=== PATIENT | male | born 1990 | race Caucasian/White ===

== ENCOUNTER 2025-02-11 17:07 | Outpatient (CLI) | payer OTHER, SELFPAY ==
--- NOTE | ~2025-02-11 | US_ITS ---
US thyroid INDICATION: Multinodular goiter TECHNIQUE: Real-time sonographic images of the thyroid gland were obtained. COMPARISON: No prior studies for comparison. FINDINGS: The right thyroid lobe measures 4.8 x 0.6 x 1.1 cm. The left thyroid lobe measures 5.7 x 1 x 1.4 cm. There is normal echotexture and echogenicity throughout the right thyroid gland. No discre te nodules identified. In the left lobe there is a heterogeneous hypoechoic vascular mass measuring 1 .4 x 1 x 1.2 cm which is solid, wider than tall, irregular margins and punctate echogenic foci, TR 5. Normal vascular flow is present. IMPRESSION: 1. Complex suspicious left thyroid mass measuring 1.4 cm, TR 5. Ultrasound-guided fine-needle aspira tion biopsy recommended. Reviewed, dictated and finalized at location A. IMPRESSION: 1. Complex suspicious left thyroid mass measuring 1.4 cm, TR 5. Ultrasound-ted ded fine-needle aspiration biopsy recommended.
--- OUTSIDE RECORDS SUMMARY | 2025-02-11 17:11 | XMS_ITS | Encounter Summary ---
Author Organization [facility] Address [address] [place] [address] Care Team Providers Care Retirement Plan Counselor Name Role Phone Eve Gleason CONCRETE BUCKET HOOKER-C Primary Care Provider [phone] Kya Ayon CONCRETE BUCKET HOOKER Primary Care Provider [phone] Nidhi Terrell HVAC INSTALLATION TECHNICIAN-BC Primary Care Provid er Merlin Rajan DO Primary Care Provider Nidhi Terrell HVAC INSTALLATION TECHNICIAN-BC Primary Care Provid er Reason for Referral * Surgical (Routine) - Closed Specialty Diagnoses / Procedures Referred By Beth swanson Referred To Contact Procedures Case request operating room: INJECTION TRIGGER POINT Cervical paraspinous, trapezius, deltoid Laura Bennett APNP Phone: tel: fax: Referral ID Status Reason Start Date Expiration Date Visits Re quested Visits Authorized [id number] Closed 01/29/2021 02/28/2022 1 1 Encounter Details Date Type Department Care Team (Late st Contact Info) Description 01/29/2021 Prep for Procedure [facility] [place], [place] [phone] Laura Bennett APNP [address] [place] [phone] Social History Tobacco Use Types Packs/Day Years Used Date Smoking Tobacco: Former Cigarettes Q uit: 2019 Smokeless Tobacco: Never Alcohol Use Standard Drinks/Week Comments No 0 (1 standard drink = 0.6 oz pur e alcohol) AUDIT-C Answer Date Recorded Frequency of Alcohol Consumption Never 03/18/2019 Average Number of Drinks Not on file 019 Frequency of Binge Drinking Not on file 03/02 PHQ-2 Answer Date Recorded PHQ-2 Score - If the patient scores above 3, please move on to questions 3-9 0 11/30/2020 Education Answer Date Recorded What is the highest level of school you have completed or the highest degree you have received? High school graduate 01/29/2021 Sex and Gender Information Value Date Recorded Sex Assigned at Male 11/12/2024 12:50 PM GLASS FURNACE OPERATOR Legal Sex Male 7:14 PM CDT Gender Identity Not on file Sexual Orientation Not on file Occupation Industry Job Start Date Job End Date Not on file Not on file Not on file Not on file COVID-19 Exposure Response Date Recorded In the last month, have you been in contact with someone who was confirmed or suspected to have Coronavirus / COVID-19? No / Unsure 01/29/2021 1:22 PM CDT documented as of this encounter Plan of Treatment Upcoming Encounters Date Type Department Care Team (Late st Contact Info) Description 02/12/2025 1:20 PM CDT Office Visit [facility] [address] [place] [phone] Nidhi Terrell, [facility] [address] [place] [address] Scheduled Orders Name Type Priority Associated Diagnoses Orde r Schedule Case request operating room: INJECTION TRIGGER POINT Cervical paraspinous, trapezius, deltoid Case Request Routine Once for 1 Oc currences starting 01/29/2021 until 01/29/2021 documented as of this encounter Visit Diagnoses Not on filedocumented in this encounter Care Teams Retirement Plan Counselor Relationship Specialty Start Date End Date Eve Gleason, CONCRETE BUCKET HOOKER-C PCP - General Nurse Practitioner Family 04/20/2012/05 Kya Ayon NP [address] [place] [address] PCP - General NURSE PRACTITIONER 12/06/21 11/29/22 Nidhi Terrell [facility] [address] [place] [address] PCP - General Nurse Practitioner Family 11/30/2212/04 Merlin Rajan DO [address] [place] [address] PCP - General FAMILY PRACTICE 12/05/22 01/07/24 Nidhi Terrell [facility] [address] [place] [address] PCP - General Nurse Practitioner Family 01/08/24 documented as of this encounter
--- OUTSIDE RECORDS SUMMARY | 2025-02-11 17:11 | XMS_ITS | Clinical Summary ---
Author Organization [facility] Address [address], [facility] [address] [place] [address] Phone Care Team Providers Care Financial Recording Clerk Name Role Phone Elmer Wetzel MD Primary Care Provider [phone] Sonya Bowman MD Unavailable [phone] Allergies Active Allergy Reactions Criticality Noted Date Comments Erythromycin Base Nausea 10/07/2015 Indomethacin Er Hives,Rash Low 11/20/2015 Medications MEDICAL CANNABIS take 2-25 mg by inhalation. Active DULoxetine (CYMBALTA) [address] Particles Take 30 mg by mouth. 12/27/2022 Active levothyroxine (SYNTHROID) 75 MCG Tablet Take 75 mcg by mouth. 12/27/2022 Active HYDROcodone-acet aminophen (NORCO) 5-325 MG Tablet Take 1 Tablet by mouth. 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 Non-Hodgkin's lymphoma 10/07/2015 Family History Medical History Relation Name Comments Diabetes Maternal Grandfather Hypertension Maternal Grandfather Other-comment Maternal Grandfather Christie son Hypertension Mother Relation Name Status Comments Father Maternal Grandfather Mother Alive Sister Alive Social History Tobacco Use Types Packs/Day Years Used Date Smoking Tobacco: Every Day Cigarettes Smokeless Tobacco: Former Tobacco Cessation:Ready to Q uit: Not Asked; Counseling Given: Not Answered Alcohol Use Standard Drinks/Week Comments No 0 (1 standard drink = 0.6 oz pur e alcohol) PHQ-2 Answer Date Recorded Total Score - Questions 1-9 0 03/02 Sex and Gender Information Value Date Recorded Sex Assigned at Not on file Legal 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 Gender Identity Not on file Sexual Orientation Not on file Last Filed Vital Signs Vital Sign Reading Time Taken Comments Blood Pressure 128/82 03/15/2024 9:21 AM CDT Pulse 64 03/15/2024 9:21 AM CDT Temperature 36.8 C (98.2 F) 03/15/2024 9:21 AM CDT Respiratory Rate 18 03/15/2024 9:21 AM CDT Oxygen Saturation 99% 03/15/2024 9:21 AM CDT Inhaled Oxygen Concentration - - Weight 82.6 kg (182 lb) 03/15/2024 9:21 AM CDT Height 177.8 cm (5' 10 ) 03/15/2024 9:21 AM CDT Body Mass Index 26.11 03/15/2024 9:21 AM CDT Plan of Treatment Upcoming Encounters Date Type Department Care Team (Late st Contact Info) Description 03/14/2025 9:00 AM CDT [facility] [address] [place] [address] Trell Raza D, DO [address] [place] [address] Gianna Maguire, CRITICAL POWER TECHNICIAN, WARP KNIT OPERATOR [address] [place] [address] Health Maintenance Due Date Last Done Comments TdaP Immunization 1989 SARS-COV-2 Immunization (#1) 1994 Hepatitis B Immunization (1 of 3 - 19+ 3-dose series) 01/24/2008 Pneumococcal Immunization Co mbined (1 of 2 - PCV) 01/24/2008 Influenza Immunization (#1) 2024 Respiratory Syncytial Virus (RSV) Immunization (Adult) (1 - 1-dose 75+ series) 01/24/2064 Hepatitis C Virus (HCV) Screening Completed 022 Meningococcal Immunization (ACWY) Aged Out No longer eligible based on patient's age to complete this topic Rotavirus Immunization Aged Out No lo nger eligible based on patient's age to complete this topic Insurance [place]ICAID [place] Care Teams Financial Recording Clerk Relationship Specialty Start Date End Date Elmer Wetzel MD [address] [facility] [address] [place] [address] PCP - General Family Medicine 09/15/15 Sonya Bowman MD [address] [facility] [address] [place] [address] Consulting Physician 10/12/15
--- OUTSIDE RECORDS SUMMARY | 2025-02-11 17:11 | XMS_ITS | Clinical Summary ---
Author Organization [facility] Address [address] [place] [address] Care Team Providers Care Executive Recruiter Name Role Phone Kya Ayon APRN-STRATEGIC COMMUNICATIONS MANAGER Primary Care Provide r Source Comments [facility],non-owned Affiliates and Associated Physician Practices is amultiple site organization consisting of ambulatory clinics and hospital sitesin [place], [place], [place] and [place]. This disclosure is being madepursuant to the Care Everywhere program and may not contain all information available regarding this patient. Last updated 18.[facility] Social History Tobacco Use Types Packs/Day Years Used Date Smoking Tobacco: Former Cigarettes Smokeless Tobacco: Never Tobacco Cessation:Counseling Given: Not Answered PHQ-2 Answer Date Recorded PHQ2 TOTAL SCORE 0 09/28/2022 Sex and Gender Information Value Date Recorded Sex Assigned at Not on file Legal Sex Male 3:24 PM CDT Gender Identity Not on file Sexual Orientation Not on file Plan of Treatment Health Maintenance Due Date Last Done Comments HIV SCREENING 01/24/2004 HEPATITIS C SCREENING 01/19/2007 DTAP/TDAP/TD VACCINES (1 - Tdap) 01/24/2008 HEPATITIS B VACCINE (1 of 3 - 19+ 3-dose series) 01/24/2008 COVID-19 VACCINE ( - 2023-2 5 season) 2024 DEPRESSION SCREENING 10/02/2024 09/06/2022 INFLUENZA VACCINE (Season Ended) 2025 ZOSTER VACCINE (1 of 2) 2039 HIB VACCINE Aged Out No longer eligi ble based on patient's age to complete this topic HPV VACCINE Aged Out No longer eligi ble based on patient's age to complete this topic MENINGOCOCCAL (Group B) VACC INE SHARED DECISION-MAKING Aged Out No longer eligibl e based on patient's age to complete this topic MENINGOCOCCAL GROUPS A/C/Y/W VACCINE Aged Out No longer eligible b ased on patient's age to complete this topic PNEUMOCOCCAL VACCINE Aged Out No long er eligible based on patient's age to complete this topic Insurance Care Teams Executive Recruiter Relationship Specialty Start Date End Date Kya Ayon APRN-STRATEGIC COMMUNICATIONS MANAGER [address] [place] [address] PCP - General 05/16/22
--- OUTSIDE RECORDS SUMMARY | 2025-02-11 17:11 | XMS_ITS | Encounter Summary ---
Author Organization [facility] Address [address] [place] [address] Care Team Providers Care Payroll Machine Operator Name Role Phone Eve Gleason POWER BARKER-C Primary Care Provider Kya Ayon POWER BARKER Primary Care Provider [phone] Nidhi Terrell DICTAPHONE TYPIST-BC Primary Care Provid er Merlin Rajan DO Primary Care Provider Nidhi Terrell DICTAPHONE TYPIST-BC Primary Care Provid er Encounter Details Date Type Department Care Team (Late st Contact Info) Description 06/17/2021 Prep for Procedure [facility] [place] [address] [phone] Laura Bennett APNP [address] [place] [address] Social History Tobacco Use Types Packs/Day Years Used Date Smoking Tobacco: Former Cigarettes Q uit: 2020 Smokeless Tobacco: Never Alcohol Use Standard Drinks/Week [...] Sex Assigned at Male 11/12/2024 12:50 PM SANITARY ENGINEERING TEACHER Legal Sex Male 7:14 PM CDT Gender Identity Not on file Sexual Orientation Not on file Occupation Industry Job Start Date Job End Date Not on file Not on file Not on file Not on file documented as of this encounter Plan of Treatment Upcoming Encounters Date Type Department Care Team (Late st Contact Info) Description 02/12/2025 1:20 PM CDT Office Visit [facility] [address] [place] [phone] Nidhi Terrell FNP-BC [address] [place] [address] documented as of this encounter Visit Diagnoses Not on filedocumented in this encounter Care Teams Payroll Machine Operator Relationship Specialty Start Date End Date Eve Gleason POWER BARKER-C PCP - General Nurse Practitioner Family 04/20/2012/05 Kya Ayon NP [address] [place] [address] PCP - General NURSE PRACTITIONER 12/06/21 11/29/22 Nidhi Terrell FNP-BC [address] [place] [phone] PCP - General Nurse Practitioner Family 11/30/2212/04 Merlin Rajan DO [address] [place] [address] PCP - General FAMILY PRACTICE 12/05/22 01/07/24 Nidhi Terrell, DICTAPHONE TYPIST-BC [address] [place] [address] PCP - General Nurse Practitioner Family 01/08/24 documented as of this encounter
--- OUTSIDE RECORDS SUMMARY | 2025-02-11 17:11 | XMS_ITS | Encounter Summary ---
Author Organization [facility] Address [address] [place] [address] Phone Care Team Providers Care Coding Technician Name Role Phone Elmer Wetzel MD Primary Care Provider [phone] Sonya Bowman MD Unavailable [phone] Encounter Details Date Type Department Care Team (Late Contact Info) Description 02/09/2022 Telephone [facility] [address] [facility] [address] [place] [address] Trell Raza, DO [address] [place] [address] Social History Tobacco Use Types Packs/Day Years Used Date Smoking Tobacco: Every Day Cigarettes Smokeless Tobacco: Former Alcohol Use Standard Drinks/Week Comments No 0 (1 standard drink = 0.6 oz pur e alcohol) PHQ-2 Answer Date Recorded Total Score - Questions 1-9 0 03/02 Sex and Gender Information Value Date Recorded Sex Assigned at Not on file Legal 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 New appt is on 03/16 documented in this encounter Plan of Treatment Upcoming Encounters Date Type Department Care Team (Late Contact Info) Description 03/14/2025 9:00 AM CDT Office Visit [facility] [address] [place] [address] Trell Raza, DO [address] [place] [address] Gianna Maguire, SAP BW ARCHITECT, PULL THROUGH HOOKER [address] [place] [address] documented as of this encounter Visit Diagnoses Not on filedocumented in this encounter Additional Health Concerns Assessment Noted Time PHQ-9 Depression Total Score: 0 12/10/19 21 10:11 AM WINDOWS VMWARE ENGINEER documented as of this encounter Care Teams Coding Technician Relationship Specialty Start Date End Date Elmer Wetzel MD [address] [facility] [address] [place] [address] PCP - General Family Medicine 09/15/15 Sonya Bowman MD [address] [facility] [address] [place] [address] Consulting Physician 10/12/15 documented as of this encounter
--- OUTSIDE RECORDS SUMMARY | 2025-02-11 17:11 | XMS_ITS | Clinical Summary ---
Author Organization [facility] Address [address] [place] [address] Care Team Providers Care Records Management Director Name Role Phone Dedematt [facility] Primary Care Provid er Allergies Active Allergy Reactions Criticality Noted Date Comments Erythromycin Diarrhea,Nausea and Vomiting 03/28 Erythromycin Base Nausea Only 10/07/2015 Indomethacin Er Hives,Rash Low 11/20/2015 Medications marijuana inhalation Inhale 2-25 mg into the lungs. 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 180 capsule 1 5 Active levothyroxine (SYNTHROID) 75 MCG tabletIndication s:Hypothyroidism , unspecified type Take 1 tablet (75 mcg total) by mouth every morning. 90 tablet 1 5 Active HYDROcodone-acet aminophen (NORCO) 5-325 MG tabletIndication s:Chronic Pain Take 1 tablet by mouth every 8 (eight) hours as needed for Pain. Indications: Chronic Pain 90 tablet 5 Active HYDROcodone-acet aminophen (NORCO) 5-325 MG tabletIndication s:Chronic Pain Take 1 tablet by mouth every 8 (eight) hours as needed for Pain. 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) 10/19/2016 10/04/2021 Non-Hodgkin's lymphoma ([facility]) 10/07/2015 10/04/2021 Overview (11/30/2020): Followed by oncology. Encounters Date Type Department Care Team Description 02/05/[address] [address] [place], Nidhi E, [facility] [place]-BC Refill Request 01/02/[address] [address] [place], Nidhi E, [employer] [place]-BC Refill Request 12/02/[address] [address] [place], Nidhi E, [employer] [place]-BC Medication Request 11/26/2024 [employer] Message [facility] [place] [address] [phone] [facility] Referral from Last 3 Months Immunizations Immunization Administration Dates Next Due Fluzone Adult - >Age 3 (Pref illed Syringe) 08/15/2024(Deferred: Patient Refused) Family History Medical History Relation Comments No Known Problems Father Parkinson's Disease Maternal Grandmother No Known Problems Mother familial polyposis in multiple family members. O ther Relation Status Comments Father Maternal Grandmother Alive Mother Alive Other Social History Tobacco Use Types Packs/Day Years Used Date Smoking Tobacco: Former Cigarettes 2 020 - 1997 Passive Smoke Exposure: Past Smokeless Tobacco: Never Tobacco Cessation:Counseling Given: Yes Alcohol Use Standard Drinks/Week Comments No 0 (1 standard drink = 0.6 oz pur e alcohol) AUDIT-C Answer Date Recorded Frequency of Alcohol Consumption Never 03/18/2019 Average Number of Drinks Not on file 019 Frequency of Binge Drinking Not on file 03/02 PHQ-2 Answer Date Recorded Patient Health Questionnaire-2 Score 0 11/12/2024 Education Answer Date Recorded What is the highest level of school you have completed or the highest degree you have received? High school graduate 01/29/2021 Sex and Gender Information Value Date Recorded Sex Assigned at Male 11/12/2024 12:50 PM METHODS SPECIALIST ENGINEER Legal Sex Male 7:14 PM CDT Gender Identity Not on file Sexual Orientation Not on file Occupation Industry Job Start Date Job End Date Not on file Not on file Not on file Not on file Last Filed Vital Signs Vital Sign Reading Time Taken Comments Blood Pressure 135/89 11/12/2024 2:00 PM METHODS SPECIALIST ENGINEER Pulse 73 11/12/2024 1:05 PM METHODS SPECIALIST ENGINEER Temperature 36.5 C (97.7 F) 11/12/2024 1:05 PM METHODS SPECIALIST ENGINEER Respiratory Rate 18 11/12/2024 1:05 PM METHODS SPECIALIST ENGINEER Oxygen Saturation 97% 11/12/2024 1:05 PM METHODS SPECIALIST ENGINEER Inhaled Oxygen Concentration - - Weight 91.4 kg (201 lb 6.4 oz) 11/12/2024 1:05 P M METHODS SPECIALIST ENGINEER Height 180.3 cm (5' 11 ) 11/12/2024 1:05 PM METHODS SPECIALIST ENGINEER Body Mass Index 28.09 11/12/2024 1:05 PM METHODS SPECIALIST ENGINEER Plan of Treatment Upcoming Encounters Date Type Department Care Team (Late st Contact Info) Description 02/12/2025 1:20 PM CDT Office Visit [facility] [address] [place] [phone] Nidhi Terrell, [facility] [address] [place] [address] Health Maintenance Due Date Last Done Comments DTaP, Tdap and Td Vaccines ( 1 - Tdap) 01/24/2008 Hepatitis B Vaccines (1 of 3 - 19+ 3-dose series) 01/24/2008 Annual Physical 12/06/2023 12/05/2022 COVID-19 Vaccine (1 - 2023-2 5 season) 2024 Hepatitis C Completed 01/13/2022 PHQ-2 (Physician [place]) Completed 11/12/2024 HPV Vaccines Aged Out No longer eligi ble based on patient's age to complete this topic Meningococcal B Vaccine Aged Out No l onger eligible based on patient's age to complete this topic Meningococcal Vaccine Aged Out No caro ralph eligible based on patient's age to complete this topic Pneumococcal Vaccine: Pediat rics (0 to 5 Years) and At-Risk Patients (6 to 49 Years) Aged Out No longer eligi ble based on patient's age to complete this topic RSV Immunizations Under 20 Months Aged Out No longer eligible based on patient's age to complete this topic Procedures Procedure Name Priority Date/Time Associated Diagnosis Comments HEPATITIS C ANTIBODY Routine 01/13/2022 4:18 PM CDT Encounter for hepatitis C screening test for low risk patient from Last 3 Months or Most Recently Relevant to Health Maintenance Results * HEPATITIS C ANTIBODY (01/13/2022 4:18 PM CDT) HEPATITIS C AB NON-REACTI VE NON-REACTI VE 01/14/2022 4:17 PM CDT [facility] 01/13/2022 4:18 PM CDT Kya Ayon NP LABORATORY Final Resul t [facility] [address] [place] [address], from Last 3 Months or Most Recently Relevant to Health Maintenance Insurance [employer] Advance Directives Documents on File Type Date Recorded Patient Labor Relations Supervisor Expl anation Legal Documents 07/15/2022 1:45 PM [employer] Care Teams Records Management Director Relationship Specialty Start Date End Date Nidhi Terrell FNP-URIEL [address] [place] [address] PCP - General Nurse Practitioner Family 01/08/24
--- OUTSIDE RECORDS SUMMARY | 2025-02-11 17:11 | XMS_ITS | Encounter Summary ---
Author Organization [facility] Address [facility] [place] [address] Care Team Providers Care Project Economist Name Role Phone Elmer Wetzel MD Primary Care Provider + Eve Gleason BEATER BOSS-C Primary Care Provider Kya Ayon BEATER BOSS Primary Care Provider [phone] Nidhi Terrell-URIEL Primary Care Provid er Merlin Rajan DO Primary Care Provider Nidhi Terrell-URIEL Primary Care Provid er Encounter Details Date Type Department Care Team (Late st Contact Info) Description 12/02/2014 Abstract [facility] [address] [place] [address] , Generic ConversionMD Social History Tobacco Use Types Packs/Day Years Used Date Smoking Tobacco: Never Assessed Sex and Gender Information Value Date Recorded Sex Assigned at Male 11/12/2024 12:50 PM DIAGRAMMER AND SEAMER Legal Sex Male 7:14 PM CDT Gender Identity Not on file Sexual Orientation Not on file documented as of this encounter Plan of Treatment Upcoming Encounters Date Type Department Care Team (Late st Contact Info) Description 02/12/2025 1:20 PM CDT Office Visit [facility] [address] [place] [phone] Nidhi Terrell DRUM DRIER-BC [address] [place] [address] documented as of this encounter Visit Diagnoses Not on filedocumented in this encounter Care Teams Project Economist Relationship Specialty Start Date End Date Elmer Wetzel MD [address] [facility] [address] [place] [phone] PCP - General FAMILY PRACTICE 09/18/18 04/19/20 Eve Gleason, BEATER BOSS-C [address] [place] [address] [address] PCP - General Nurse Practitioner Family 04/20/2012/05 Kya Ayon NP [address] [place], [place] [id number] PCP - General NURSE PRACTITIONER 12/06/21 11/29/22 Nidhi Terrell DRUM DRIER- [address] [place] [address] PCP - General Nurse Practitioner Family 11/30/2212/04 Merlin Rajan DO [address] [place] [address] PCP - General FAMILY PRACTICE 12/05/22 01/07/24 Nidhi Terrell DRUM DRIER- [address] [place] [address] PCP - General Nurse Practitioner Family 01/08/24 documented as of this encounter
--- OUTSIDE RECORDS SUMMARY | 2025-02-11 17:11 | XMS_ITS | Encounter Summary ---
Author Organization [facility] Address [facility] [place] [address] Care Team Providers Care Live In Housekeeper Nanny Name Role Phone Elmer Wetzel MD Primary Care Provider + Eve Gleason TAIL SAWYER-C Primary Care Provider Kya Ayon TAIL SAWYER Primary Care Provider +1- [phone] Nidhi TerrellP-URIEL Primary Care Provid er Merlin Rajan DO Primary Care Provider Nidhi Terrell-URIEL Primary Care Provid er Encounter Details Date Type Department Care Team (Late st Contact Info) Description 08/05/2017 Abstract [place] [address] , Generic Conversion, Social History Tobacco Use Types Packs/Day Years Used Date Smoking Tobacco: Never Assessed Sex and Gender Information Value Date Recorded Sex Assigned at Male 11/12/2024 12:50 PM ADVERTISING AGENCY MANAGER Legal Sex Male 7:14 PM CDT Gender Identity Not on file Sexual Orientation Not on file documented as of this encounter Plan of Treatment Upcoming Encounters Date Type Department Care Team (Late st Contact Info) Description 02/12/2025 1:20 PM CDT Office Visit [address] [phone] Nidhi Terrell PAINTER SIGN MAINTENANCE-BC [address] [place] [address] documented as of this encounter Visit Diagnoses Not on filedocumented in this encounter Care Teams Live In Housekeeper Nanny Relationship Specialty Start Date End Date Elmer Wetzel MD [address] [facility] [address] [place] [address] PCP - General FAMILY PRACTICE 09/18/18 04/19/20 Eve Gleason, TAIL SAWYER-C 9401 [facility] [address] PCP - General Nurse Practitioner Family 04/20/2012/05 Kya Ayon NP 9401 [place] [address] PCP - General NURSE PRACTITIONER 12/06/21 11/29/22 [facility] 9401 [place] [address] PCP - General Nurse Practitioner Family 11/30/2212/04 Merlin Rajan DO 9401 [place] [address] PCP - General FAMILY PRACTICE 12/05/22 01/07/24 Nidhi Terrell [facility] [address] [place] [address], [place] [address] PCP - General Nurse Practitioner Family 01/08/24 documented as of this encounter
--- OUTSIDE RECORDS SUMMARY | 2025-02-11 17:11 | XMS_ITS | Encounter Summary ---
Author Organization [facility] Address [facility] [place] [address] Care Team Providers Care Asphalt Coater Name Role Phone Elmer Wetzel MD Primary Care Provider + Eve Gleason MACHINE SILK SCREEN PRINTER-C Primary Care Provider Kya Ayon MACHINE SILK SCREEN PRINTER Primary Care Provider +1- [phone] Nidhi Terrell-URIEL Primary Care Provid er Merlin Rajan DO Primary Care Provider Nidhi Terrell-URIEL Primary Care Provid er Encounter Details Date Type Department Care Team (Late st Contact Info) Description 03/09/2019 Abstract [facility] CONVERSION [address] [place], [place] [id number] , Generic ConversionMD Social History Tobacco Use Types Packs/Day Years Used Date Smoking Tobacco: Never Assessed Sex and Gender Information Value Date Recorded Sex Assigned at Male 11/12/2024 12:50 PM STORAGE BATTERY CHARGER Legal Sex Male 7:14 PM CDT Gender Identity Not on file Sexual Orientation Not on file documented as of this encounter Plan of Treatment Upcoming Encounters Date Type Department Care Team (Late st Contact Info) Description 02/12/2025 1:20 PM CDT Office Visit [address] [address] Nidhi Terrell BRASS CUTTER-BC [address] [place] [address] documented as of this encounter Visit Diagnoses Not on filedocumented in this encounter Care Teams Asphalt Coater Relationship Specialty Start Date End Date Elmer Wetzel MD [address] [facility] [address] [place] [phone] PCP - General FAMILY PRACTICE 09/18/18 04/19/20 Eve Gleason, MACHINE SILK SCREEN PRINTER-C [address] [place] [address] [address] PCP - General Nurse Practitioner Family 04/20/2012/05 Kya Ayon NP [address] [place], [place] [id number] PCP - General NURSE PRACTITIONER 12/06/21 11/29/22 Nidhi Terrell [facility]- [address] [place] [address] PCP - General Nurse Practitioner Family 11/30/2212/04 Merlin Rajan DO 9401 [place] [address] PCP - General FAMILY PRACTICE 12/05/22 01/07/24 Nidhi Terrell BRASS CUTTER- [address] [place] [address] PCP - General Nurse Practitioner Family 01/08/24 documented as of this encounter
--- OUTSIDE RECORDS SUMMARY | 2025-02-11 17:11 | XMS_ITS | Encounter Summary ---
Author Organization [facility] Address [address] [place] [address] Care Team Providers Care Allergy Physician Name Role Phone Dedematt Nidhi [facility] Primary Care Provid er Encounter Details Date Type Department Care Team (Latest Contact Info) Description 11/26/2024 BeavEx Message [facility] Interventional [place] [address] [phone] Wanda, [facility] Provider Pain Management Referral Social History Tobacco Use Types Packs/Day Years Used Date Smoking Tobacco: Former Cigarettes 2 - 1997 Passive Smoke Exposure: Past Smokeless Tobacco: Never Alcohol Use Standard Drinks/Week [...] Sex Assigned at Male 11/12/2024 12:50 PM PIPE LINE MAINTENANCE SUPERVISOR Legal Sex Male 7:14 PM CDT Gender Identity Not on file Sexual Orientation Not on file Occupation Industry Job Start Date Job End Date Not on file Not on file Not on file Not on file documented as of this encounter Plan of Treatment Upcoming Encounters Date Type Department Care Team (Late st Contact Info) Description 02/12/2025 1:20 PM CDT Office Visit [facility] [address] [place] [address] Nidhi Terrell FNP-BC [address] [address] documented as of this encounter Visit Diagnoses Not on filedocumented in this encounter Additional Health Concerns Assessment Noted Time PHQ-9 Depression Total Score: 0 12/23/19 22 3:15 PM CDT documented as of this encounter Care Teams Allergy Physician Relationship Specialty Start Date End Date Nidhi Terrell FNP-BC [address] [place] [address] PCP - General Nurse Practitioner Family 01/08/24 documented as of this encounter
== END 2025-02-11 17:08 | disposition home or self-care (01) ==
PROVIDERS: PCP Nurse Practitioner Family; Visit Provider Internal Medicine
DX: E04.2 Nontoxic multinodular goiter (principal); E03.9 Hypothyroidism, unspecified
CPT/HCPCS: 76536

== ENCOUNTER 2025-04-22 12:53 | Outpatient (CLI) | payer OTHER, SELFPAY ==
--- NOTE | ~2025-04-22 | US_ITS ---
EXAMINATION: US THYROID BIOPSY, left-sided DATE: 04/22/2025 19:18 CDT INDICATION: Enlarged left thyroid lobe nodule TECHNIQUE: The procedure for biopsy of the thyroid nodule and its benefits and risks were explained to the patie nt. Potential risk included were not limited to bleeding, infection, and nondiagnostic specimen. Onc e informed consent was obtained, the patient was taken to the ultrasound suite and placed in the supi ne position on the ultrasound table. Limited ultrasound was then performed of the thyroid gland prior to intervention. This demonstrated a solid mass within the left lobe of the thyroid gland with punctate echogenic foci as well as macrocalcifications and measured 14 mm in greatest dimension. The neck was prepped and draped in the usual sterile manner. 10 cc 1% lidocaine without epinephrine was utilized for local anesthesia. 6 passes were made with a 2 5G needle into the left-sided thyroid lesion. Appropriate needle location was documented with contin uous sonographic guidance. The specimens were passed to the cytopathologist in the room for the proc edure who confirmed adequacy. All needles were removed and a sterile dressing applied. The patient tolerated the procedure without difficulty and was discharged to home from the ultrasound area in stable condition. FINDINGS: Solid mass within the left lobe of the thyroid gland with punctate echogenic foci and macrocalcificat ions, suitable for biopsy. Subsequent images demonstrate needles advanced into the lesion for biopsy. IMPRESSION: Technically successful ultrasound guided biopsy of left-sided thyroid nodule. Pathology pending Reviewed, dictated and finalized at location A.
--- OUTSIDE RECORDS SUMMARY | 2025-04-22 12:58 | XMS_ITS | Encounter Summary ---
Author Organization [facility] Address [facility]6 [place] [address] Care Team Providers Care Data Consultant Name Role Phone Elmer Wetzel MD Primary Care Provider + Eev Gleason NUCLEAR PHARMACIST-C Primary Care Provider Kya Ayon NUCLEAR PHARMACIST Primary Care Provider [phone]- [phone] Nidhi Terrell OBSTETRICS GYNECOLOGY PHYSICIAN-BC Primary Care Provid er Merlin Rajan DO Primary Care Provider Nidhi Terrell OBSTETRICS GYNECOLOGY PHYSICIAN-BC Primary Care Provid er Encounter Details Date Type Department Care Team (Late st Contact Info) Description 03/09/2019 Abstract [facility] CONVERSION [address] [place] [address] , Generic MD Reinaldo Social History Tobacco Use Types Packs/Day Years Used Date Smoking Tobacco: Never Assessed Sex and Gender Information Value Date Recorded Sex Assigned at Male 11/12/2024 12:50 PM FLAT BED OPERATOR Legal Sex Male 7:14 PM CDT Gender Identity Not on file Sexual Orientation Not on file documented as of this encounter Plan of Treatment Upcoming Encounters Date Type Department Care Team (Latest Contact Info) Description 04/29/2025 10:44 AM CDT Hospital Encounter [facility] [place] [address] [place] [address] Marlon Qureshi MD [address] [place], [place] [address] 04/29/2025 10:44 AM CDT - 04/29/2025 11:50 AM CDT Surgery [facility] [address] [facility] [place] [address] Marlon Qureshi MD 9515 [facility] 175 [place] [address] COLONOSCOPY WITH POSSIBLE BIOPSY WITH POSSIBLE POLYPECTOMY 05/12/2025 1:00 PM CDT Office Visit [facility] [address] [facility] [place] [place] [address] Nidhi Terrell, [facility] 9401 [place] [address] Scheduled Procedures Name Priority Associated Diagnoses Date/Ti me COLONOSCOPY DIAGNOSTIC WITH/WITHOUT SPECIMEN BRUSH/WASH Internal hemorrhoids Rectal bleeding Change in bowel habits 04/29/2025 10:44 AM CDT HEMORRHOIDECTOMY INTERNAL W/LIGATION Internal hemorrhoids Rectal bleeding Change in bowel habits 04/29/2025 10:44 AM CDT documented as of this encounter Visit Diagnoses Not on filedocumented in this encounter Care Teams Data Consultant Relationship Specialty Start Date End Date Elmer Wetzel MD [address] [place] [address] 112 [place] [address] PCP - General FAMILY PRACTICE 09/18/18 04/19/20 Eve Gleason NUCLEAR PHARMACIST-C [address] [place] [address] 112 [place] [address] PCP - General Nurse Practitioner Family 04/20/2012/05 Kya Ayon NP [address] [place] [id number] PCP - General NURSE PRACTITIONER 12/06/21 11/29/22 Nidhi Terrell FNP- [address] [place] [address] PCP - General Nurse Practitioner Family 11/30/2212/04 Merlin Rajan DO [address] [place] [address] PCP - General FAMILY PRACTICE 12/05/22 01/07/24 [facility] [address] [place] [address] PCP - General Nurse Practitioner Family 01/08/24 documented as of this encounter
--- OUTSIDE RECORDS SUMMARY | 2025-04-22 12:58 | XMS_ITS | Encounter Summary ---
Author Organization [facility] Address [facility]6 [place] [address] Care Team Providers Care Electrical Equipment Assembler Name Role Phone Nidhi Terrell-URIEL Primary Care Provid er Encounter Details Date Type Department Care Team (Late st Contact Info) Description 02/20/2025 Results Follow-Up [facility] 9401 [place] [address] Nidhi Terrell FNP-BC 9401 [place], [place] [phone] MG/PCCL UDS SCREEN Social History Tobacco Use Types Packs/Day Years [...] Date Recorded Patient Health Questionnaire-2 Score 0 02/12/2025 Education Answer Date Recorded What is the highest level of school you have completed or the highest degree you have received? High school graduate 01/29/2021 Sex and Gender Information Value Date Recorded Sex Assigned at Male 11/12/2024 12:50 PM INORGANIC CHEMISTRY TEACHER Legal Sex Male 7:14 PM CDT Gender Identity Not on file Sexual Orientation Not on file Occupation Industry Job Start Date Job End Date Not on file Not on file Not on file Not on file documented as of this encounter Plan of Treatment Upcoming Encounters Date Type Department Care Team (Latest Contact Info) Description 04/29/2025 10:44 AM CDT Hospital Encounter [facility] [address] [place] [address] Marlon Qureshi MD 9515 [facility] [address] [place] [address] 04/29/2025 10:44 AM CDT - 04/29/2025 11:50 AM CDT Surgery [facility] [address] [place] [address] Marlon Qureshi MD [address] [place] [address] 175 [place] [address] COLONOSCOPY WITH POSSIBLE BIOPSY WITH POSSIBLE POLYPECTOMY 05/12/2025 1:00 PM CDT Office Visit [facility] [address]01 [place] [address] Nidhi Terrell FNP-BC 9401 [place] [address] Scheduled Procedures Name Priority Associated [...] documented as of this encounter Care Teams Electrical Equipment Assembler Relationship Specialty Start Date End Date Nidhi Terrell FNP-BC [address] [place] [phone] PCP - General Nurse Practitioner Family 4/8/24 documented as of this encounter
--- OUTSIDE RECORDS SUMMARY | 2025-04-22 12:58 | XMS_ITS | Encounter Summary ---
Author Organization [facility] Address [facility] [place] [address] Care Team Providers Care Postal Sorting Officer Name Role Phone Elmer Wetzel MD Primary Care Provider + Eve Gleason HIDE CURER-C Primary Care Provider [phone] Kya Ayon HIDE CURER Primary Care Provider [phone]- [phone] Nidhi Terrell BACK UP MACHINE OPERATOR-BC Primary Care Provid er Merlin Rajan DO Primary Care Provider Nidhi Terrell BACK UP MACHINE OPERATOR-BC Primary Care Provid er Encounter Details Date Type Department Care Team (Late st Contact Info) Description 08/05/2017 Abstract [place] [address] , Generic Conversion, Social History Tobacco Use Types Packs/Day Years Used Date Smoking Tobacco: Never Assessed Sex and Gender Information Value Date Recorded Sex Assigned at Male 11/12/2024 12:50 PM CORPORATE PLANNER Legal Sex Male 7:14 PM CDT Gender Identity Not on file Sexual Orientation Not on file documented as of this encounter Plan of Treatment Upcoming Encounters Date Type Department Care Team (Latest Contact Info) Description 04/29/2025 10:44 AM CDT Hospital Encounter [facility] [place] [address] [place] [address] Marlon Qureshi MD [address] [place] [address] 04/29/2025 10:44 AM CDT - 04/29/2025 11:50 AM CDT Surgery [facility] [place] [address]15 [place] [address] Marlon Qureshi MD 9515 [facility] 175 [place] [address] COLONOSCOPY WITH POSSIBLE BIOPSY WITH POSSIBLE POLYPECTOMY 05/12/2025 1:00 PM CDT Office Visit [facility] 9401 [place] [address] Nidhi Terrell, [facility] 9401 [place], [place] [phone] Scheduled Procedures Name Priority Associated Diagnoses Date/Ti me COLONOSCOPY DIAGNOSTIC WITH/WITHOUT SPECIMEN BRUSH/WASH Internal hemorrhoids Rectal bleeding Change in bowel habits 04/29/2025 10:44 AM CDT HEMORRHOIDECTOMY INTERNAL W/LIGATION Internal hemorrhoids Rectal bleeding Change in bowel habits 04/29/2025 10:44 AM CDT documented as of this encounter Visit Diagnoses Not on filedocumented in this encounter Care Teams Postal Sorting Officer Relationship Specialty Start Date End Date Elmer Wetzel MD [address] [place] [address] 112 [place] [address] PCP - General FAMILY PRACTICE 09/18/18 04/19/20 Eve Gleason NP-C [address] [place] [address] 112 [place] [address] PCP - General Nurse Practitioner Family 04/20/2012/05 Kya Ayon NP [address] [place] [phone] PCP - General NURSE PRACTITIONER 12/06/21 11/29/22 [facility] [address] [place] [address] PCP - General Nurse Practitioner Family 11/30/2212/04 Merlin Rajan DO [address] [place] [address] PCP - General FAMILY PRACTICE 12/05/22 01/07/24 Nidhi Terrell [facility] [address] [place] [address] PCP - General Nurse Practitioner Family 01/08/24 documented as of this encounter
--- OUTSIDE RECORDS SUMMARY | 2025-04-22 12:58 | XMS_ITS | Encounter Summary ---
Author Organization [facility] Address [facility] [place] [address] Care Team Providers Care Associate Software Application Engineer Name Role Phone Elmer Wetzel MD Primary Care Provider + Eve Gleason ACUTE DIALYSIS REGISTERED NURSE-C Primary Care Provider Kya Ayon ACUTE DIALYSIS REGISTERED NURSE Primary Care Provider [phone]- [phone] Nidhi Terrell INVENTORY TAKER-BC Primary Care Provid er Merlin Rajan DO Primary Care Provider Nidhi Terrell INVENTORY TAKER-BC Primary Care Provid er Encounter Details Date Type Department Care Team (Late st Contact Info) Description 12/02/2014 Abstract [facility] CONVERSION [address] [place] [address] , Generic MD Reinaldo Social History Tobacco Use Types Packs/Day Years Used Date Smoking Tobacco: Never Assessed Sex and Gender Information Value Date Recorded Sex Assigned at Male 11/12/2024 12:50 PM MANAGER STUDIO Legal Sex Male 7:14 PM CDT Gender Identity Not on file Sexual Orientation Not on file documented as of this encounter Plan of Treatment Upcoming Encounters Date Type Department Care Team (Latest Contact Info) Description 04/29/2025 10:44 AM CDT Hospital Encounter [facility] [place] [address] [place] [address] Marlon Qureshi MD [address] [place], [place] [address] 04/29/2025 10:44 AM CDT - 04/29/2025 11:50 AM CDT Surgery [facility] [address]15 [facility] [address] Marlon Qureshi MD 9515 [facility] 175 [place] [address] COLONOSCOPY WITH POSSIBLE BIOPSY WITH POSSIBLE POLYPECTOMY 05/12/2025 1:00 PM CDT Office Visit [facility] 9401 [facility] [place] [address] Nidhi Terrell, [facility] 9401 [place] [address] Scheduled Procedures Name Priority Associated Diagnoses Date/Ti me COLONOSCOPY DIAGNOSTIC WITH/WITHOUT SPECIMEN BRUSH/WASH Internal hemorrhoids Rectal bleeding Change in bowel habits 04/29/2025 10:44 AM CDT HEMORRHOIDECTOMY INTERNAL W/LIGATION Internal hemorrhoids Rectal bleeding Change in bowel habits 04/29/2025 10:44 AM CDT documented as of this encounter Visit Diagnoses Not on filedocumented in this encounter Care Teams Associate Software Application Engineer Relationship Specialty Start Date End Date Elmer Wetzel MD [address] [place] [address] 112 [place] [address] PCP - General FAMILY PRACTICE 09/18/18 04/19/20 Eve Gleason ACUTE DIALYSIS REGISTERED NURSE-C [address] [place] [address] 112 [place] [address] PCP - General Nurse Practitioner Family 04/20/2012/05 Kya Ayon NP [address] [place] [id number] PCP - General NURSE PRACTITIONER 12/06/21 11/29/22 Nidhi Terrell FNP- [address] [place] [address] PCP - General Nurse Practitioner Family 11/30/2212/04 Merlin Rajan DO [address] [place] [address] PCP - General FAMILY PRACTICE 12/05/22 01/07/24 Nidhi Ter[facility] [address] [place] [address] PCP - General Nurse Practitioner Family 01/08/24 documented as of this encounter
--- OUTSIDE RECORDS SUMMARY | 2025-04-22 12:58 | XMS_ITS | Clinical Summary ---
Author Organization [facility] Address [address] [place] [address] Care Team Providers Care Captain/Airline Pilot Name Role Phone Kya Ayon APRN-MARINE PILOT Primary Care Provide r Source Comments [facility],non-owned Affiliates and Associated Physician Practices is amultiple site organization consisting of ambulatory clinics and hospital sitesin [place], [place], [place] and [place]. This disclosure is being madepursuant to the Care Everywhere program and may not contain all information available regarding this patient. Last updated 18.[facility] Social History Tobacco Use Types Packs/Day Years [...] of 3 - 19+ 3-dose series) 01/24/2008 HPV VACCINE (1 - 3-dose SCDM series) 01/24/2016 COVID-19 VACCINE (1 - 2023-2 5 season) 2024 DEPRESSION SCREENING 10/02/2024 09/06/2022 INFLUENZA VACCINE (#1) 2025 ZOSTER VACCINE (1 of 2) 2039 [...] to complete this topic Insurance Care Teams Captain/Airline Pilot Relationship Specialty Start Date End Date Kya Ayon APRN-MARINE PILOT [address] [place] [address] PCP - General 05/16/22
--- OUTSIDE RECORDS SUMMARY | 2025-04-22 12:59 | XMS_ITS | Encounter Summary ---
Author Organization [facility] Address [address] [place] [address] Care Team Providers Care Paper Bag Press Operator Name Role Phone Dedematt Nidhi [facility]REST. [facility] Primary Care Provid er Encounter Details Date Type Department Care Team (Latest Contact Info) Description 11/26/2024 [place] Message [facility] Interventional [place] [address] [phone] DanceOnannabel, [facility] Provider Pain Management Referral Social History Tobacco [...] Sex Assigned at Male 11/12/2024 12:50 PM MUSEUM LIBRARIAN Legal Sex Male 7:14 PM CDT Gender Identity Not on file Sexual Orientation Not on file Occupation Industry Job Start Date Job End Date Not on file Not on file Not on file Not on file documented as of this encounter Plan of Treatment Upcoming Encounters Date Type Department Care Team (Latest Contact Info) Description 04/29/2025 10:44 AM CDT Hospital En[facility] [place] [address] [facility] [place] [address] Marlon Qureshi MD [address]15 [facility] [address] [place] [address] 04/29/2025 10:44 AM CDT - 04/29/2025 11:50 AM CDT Surgery [facility] [address] [facility] [place] [address] Marlon Qureshi MD [address] [facility] [address] [place] [address] COLONOSCOPY WITH POSSIBLE BIOPSY WITH POSSIBLE POLYPECTOMY 05/12/2025 1:00 PM CDT Office Visit [facility] 9401 [place] [address] Nidhi Terrell FNP-BC [address] [place] [address] Scheduled Procedures Name Priority Associated Diagnoses Date/Ti [...] documented as of this encounter Care Teams Paper Bag Press Operator Relationship Specialty Start Date End Date Nidhi Terrell FNP-BC [address] [place] [address] PCP - General Nurse Practitioner Family 01/08/24 documented as of this encounter
--- OUTSIDE RECORDS SUMMARY | 2025-04-22 12:59 | XMS_ITS | Encounter Summary ---
Author Organization [facility] Address [address] [place] [address] Care Team Providers Care Event Representative Name Role Phone Eve Gleason SERVICE GIRL-C Primary Care Provider Kya Ayon SERVICE GIRL Primary Care Provider [phone] Nidhi Terrell CLIENT SERVICE ASSOCIATE-BC Primary Care Provid er Merlin Rajan DO Primary Care Provider Nidhi Terrell CLIENT SERVICE ASSOCIATE-BC Primary Care Provid er Encounter Details Date Type Department Care Team (Late st Contact Info) Description 06/17/2021 Prep for Procedure [facility] [place] [address] [phone] Laura Bennett NP [address] [facility] [address] [place] [phone] [phone] (Work) Social History Tobacco Use Types Packs/Day Years [...] Sex Assigned at Male 11/12/2024 12:50 PM PERINATAL DIRECTOR Legal Sex Male 7:14 PM CDT Gender Identity Not on file Sexual Orientation Not on file Occupation Industry Job Start Date Job End Date Not on file Not on file Not on file Not on file documented as of this encounter Plan of Treatment Upcoming Encounters Date Type Department Care Team (Latest Contact Info) Description 04/29/2025 10:44 AM CDT Hospital Encounter [facility] [address] [place] [address], [place] [address] Marlon Qureshi MD [address] [place] [address] [address] [place] [address] 04/29/2025 10:44 AM CDT - 04/29/2025 11:50 AM CDT Surgery [facility] [address] [place] [address], [place] [address] Marlon Qureshi MD [address] [place] [address] [address] [place] [address] COLONOSCOPY WITH POSSIBLE BIOPSY WITH POSSIBLE POLYPECTOMY 05/12/2025 1:00 PM CDT Office Visit [facility] [address] [place] [phone] Nidhi Terrell, [facility] [address] [place], [place] [phone] Scheduled Procedures Name Priority Associated Diagnoses Date/Ti me COLONOSCOPY DIAGNOSTIC WITH/WITHOUT SPECIMEN BRUSH/WASH Internal hemorrhoids Rectal bleeding Change in bowel habits 04/29/2025 10:44 AM CDT HEMORRHOIDECTOMY INTERNAL W/LIGATION Internal hemorrhoids Rectal bleeding Change in bowel habits 04/29/2025 10:44 AM CDT documented as of this encounter Visit Diagnoses Not on filedocumented in this encounter Care Teams Event Representative Relationship Specialty Start Date End Date Eve Gleason, SERVICE GIRL-C PCP - General Nurse Practitioner Family 04/20/2012/05 Kya Ayon, SERVICE GIRL [address] [place] [address] [place] [address] PCP - General NURSE PRACTITIONER 12/06/21 11/29/22 [facility] [address] [place] [address] PCP - General Nurse Practitioner Family 11/30/2212/04 Merlin Rajan DO [address] [place] [address] PCP - General FAMILY PRACTICE 12/05/22 01/07/24 Nidhi Terrell [facility] [address] [place] [address] PCP - General Nurse Practitioner Family 01/08/24 documented as of this encounter
--- OUTSIDE RECORDS SUMMARY | 2025-04-22 12:59 | XMS_ITS | Clinical Summary ---
Author Organization [facility] Address [address] [place] [address] Care Team Providers Care Shaker Washer Name Role Phone Nidhi Nidhi [facility] Primary Care Provid er Allergies Active Allergy Reactions Criticality Noted Date Comments Erythromycin Diarrhea,Nausea and Vomiting 03/28 Erythromycin Base Nausea Only 10/07/2015 Indomethacin Er Hives,Rash Low 11/20/2015 Medications marijuana inhalation Inhale 2-25 mg into the lungs. Active levothyroxine (SYNTHROID) 75 MCG tabletIndicatio ns:Hypothyroidi sm, unspecified type Take 1 tablet (75 mcg total) by mouth every morning. 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 180 capsule 1 02/13/20 25 Active hydrocortisone 2.5 % creamIndication s:Internal hemorrhoids Apply topically 2 (two) times daily. 28 g 1 03/11/20 25 Active GAVILYTE-G 236 g solution 03/12/20 25 Active HYDROcodone-linh taminophen (NORCO) 5-325 MG tabletIndicatio ns:Chronic Pain Take 1 tablet by mouth every 8 (eight) hours as needed for Pain. Indications: Chronic Pain 90 tablet 04/08/20 25 Active HYDROcodone-linh taminophen (NORCO) 5-325 MG tabletIndicatio ns:Chronic Pain Take 1 tablet by mouth every 8 (eight) hours as needed for Pain. Indications: Chronic Pain 90 tablet 03/10/20 25 025 Discontinu ed(Reorder ) Sodium Sulfate-Mag Sulfate-KCl (SUTAB) 3872-458-917 MG TabIndications: Internal hemorrhoids,Rec jacki bleeding,Change in bowel habits Take 12 tablets by mouth see administration instructions. Take 12 tablets at 5:00pm the evening before colonoscopy then take 12 tablets at 4:00am morning of colonoscopy. 24 tablet 03/12/20 25 025 Discontinu ed(Error) amoxicillin (AMOXIL) 875 MG tabletIndicatio ns:Right otitis media, unspecified otitis media type Take 1 tablet (875 mg total) by mouth 2 (two) times daily for 10 days. 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 Encounters Date Type Department Care Team Description 04/08/[address] [address] Nidhi Terrell, DISTRIBUTION SYSTEMS SERVICEPERSON-URIEL Refill Request 04/03/2025 Travel 03/20/2025 10:20 AM CDT Office Visit [address] [address] Elmer Wetzel MD Ear Problem (Pt here today for right ear pain, spreading along jaw.) 03/20/2025 Travel 03/12/2025 Prep for Procedure [facility] [address] [facility], [address] [place] [address] Marlon Qureshi MD 03/12/2025 Prep for Procedure [facility] [address] [facility], [address] [place] [phone] Marlon Qureshi MD 03/11/2025 4:20 PM CDT Office Visit [facility] [address] [facility], [address] [place] [address] Marlon Qureshi MD Rectal Problem (Bloody stools/colonoscopy consult) 03/11/2025 Travel 03/10/[address] [address] Nidhi Nidhi E, DISTRIBUTION SYSTEMS SERVICEPERSON-BC Refill Request 02/20/2025 Results Follow-Up [address] [address] Nidhi Nidhi E, DISTRIBUTION SYSTEMS SERVICEPERSON-BC MG/PCCL UDS SCREEN 02/12/2025 1:20 PM CDT Office Visit [address] [address] Nidhi Nidhi E, DISTRIBUTION SYSTEMS SERVICEPERSON-BC Follow Up (CSA AND UDS ) 02/12/2025 Travel 02/11/2025 Scan [facility] Scanned, [facility] Ultrasound (SCAN) 02/05/[address] [address] Nidhi, Nidhi E, DISTRIBUTION SYSTEMS SERVICEPERSON-BC Refill Request from Last 3 Months Immunizations Immunization Administration [...] Years Used Date Smoking Tobacco: Former Cigarettes - 1997 Passive Smoke Exposure: Past Smokeless Tobacco: Current Chew Tobacco Cessation:Ready to Q uit: No; Counseling Given: Yes Comments:Uses marijuana, chews Darin packet Alcohol Use Standard Drinks/Week Comments No 0 [...] Sex Assigned at Male 11/12/2024 12:50 PM PERSONAL CHEF Legal Sex Male 7:14 PM CDT Gender Identity Not on file Sexual Orientation Not on file Occupation Industry Job Start Date Job End Date Not on file Not on file Not on file Not on file Last Filed Vital Signs Vital Sign Reading Time Taken Comments Blood Pressure 138/82 03/20/2025 10:14 AM CDT Pulse 76 03/20/2025 10:14 AM CDT Temperature 37 C (98.6 F) 03/20/2025 10:14 AM CDT Respiratory Rate 20 03/20/2025 10:14 AM CDT Oxygen Saturation 98% 03/20/2025 10:14 AM CDT Inhaled Oxygen Concentration - - Weight 90.7 kg (200 lb) 04/03/2025 11:37 AM CDT Height 180.3 cm (5' 11) 04/03/2025 11:37 AM CDT Body Mass Index 27.89 04/03/2025 11:37 AM CDT Plan of Treatment Upcoming Encounters Date Type Department Care Team (Latest Contact Info) Description 04/29/2025 10:44 AM CDT Hospital Encounter [facility] [address] [facility] [place] [address] Marlon Qureshi MD [address] [facility] [address] [place] [address] 04/29/2025 10:44 AM CDT - 04/29/2025 11:50 AM CDT Surgery [facility] [address] [facility] [place] [address] Marlon Qureshi MD [address] [facility] [address] [place] [address] COLONOSCOPY WITH POSSIBLE BIOPSY WITH POSSIBLE POLYPECTOMY 05/12/2025 1:00 PM CDT Office Visit [facility] [address] [facility] [place] [address] Nidhi Terrell, [facility] [address] [facility] [place] [phone] Scheduled Procedures Name Priority Associated Diagnoses Date/Ti me COLONOSCOPY DIAGNOSTIC WITH/WITHOUT SPECIMEN BRUSH/WASH Internal hemorrhoids Rectal bleeding Change in bowel habits 04/29/2025 10:44 AM CDT HEMORRHOIDECTOMY INTERNAL W/LIGATION Internal hemorrhoids Rectal bleeding Change in bowel habits 04/29/2025 10:44 AM CDT Health Maintenance Due Date Last Done Comments DTaP, Tdap and Td Vaccines ( 1 - Tdap) 01/24/2008 Hepatitis B Vaccines (1 of 3 - 19+ 3-dose series) 01/24/2008 HPV Vaccines (1 - 3-dose SCD M series) 01/24/2016 COVID-19 Vaccine ( - 2023-2 5 season) 2024 Annual Physical 02/12/2026 02/12/2025, 12/05/2022 Hepatitis C Completed 01/13/2022 PHQ-2 (Physician Solomon) Completed 02/12/2025 Meningococcal B Vaccine Aged Out No l onger eligible based on patient's age to complete this topic Meningococcal Vaccine Aged Out No caro ralph eligible based on patient's age to complete this topic Pneumococcal Vaccine: Pediatrics (0 to 5 Years) and At-Risk Patients (6 to 49 Years) Aged Out No longer eligible b ased on patient's age to complete this topic RSV Immunizations Under 20 Months Aged Out No longer eligible b ased on patient's age to complete this topic Goals Goal Patient Goal Type Associated Problems Recent Progress Patient-Stated? Author Autogenerat ed Goal Care Plan Autogenerated Problem No Ion Smith MA Procedures Procedure Name Priority Date/Time Associated Diagnosis Comments DIAGNOSTIC ANOSCOPY Routine 03/11/2025 5 :33 PM CDT Internal hemorrhoids Rectal bleeding MG/PCCL UDS SCREEN Routine 02/12/2025 1: 43 PM CDT Encounter for long-term opiate analgesic use Encounter for long-term (current) drug use ULTRASOUND GENERIC (SCAN ORDER) 02/11/2025 HEPATITIS C ANTIBODY Routine 01/13/2022 4:18 PM CDT Encounter for hepatitis C screening test for low risk patient from Last 3 Months or Most Recently Relevant to Health Maintenance Results * DIAGNOSTIC ANOSCOPY (03/11/2025 5:33 PM CDT) Marlon Tenorio MD - 03/11/2025 5:33 PM CDT Marlon Qureshi MD 03/11/2025 5:35 PM DIAGNOSTIC ANOSCOPY Date/Time: 03/11/2025 5:33 PM Performed by: Marlon Qureshi MD Authorized by: Marlon Qureshi MD Consent: Consent obtained: Verbal Consent given by: Patient Risks, benefits, and alternatives were discussed: yes Risks discussed: Bleeding, infection and pain Alternatives discussed: Observation Gary protocol: Procedure explained and questions answered to patient or proxy's satisfaction: yes Relevant documents present and verified: yes Site/side marked: yes Immediately prior to procedure, a time out was called: yes Patient identity confirmed: Verbally with patient Indications: Indications: Rectal bleeding Sedation: Sedation type: None Anesthesia: Anesthesia method: None Procedure specific details: Housecleaner present. Patient in left lateral decubitus position. He was quite tense. Digital rectal examination performed. A lubricated anoscope was carefully introduced into the anal canal and large Internal hemorrhoids noted. No external hemorrhoids noted. Anoscope completely retrieved. Post-procedure details: Procedure completion: Tolerated well, no immediate complications us Marlon Qureshi MD PROCEDURES-UNRESULTED Final Result * (ABNORMAL) MG/PCCL UDS SCREEN (02/12/2025 1:43 PM CDT) FENTANYL SCREEN (U) NEGATIVE <0.5 ng/mL [facility] Comment: See Note A See Note A MORPHINE (U) NEGATIVE <10 ng/mL [facility] Comment: See Note A See Note A AMPHETAMINES PM NEGATIVE <500 ng/mL [facility] Comment: See Note A See Note A BARBITURATES PM (U) NEGATIVE <300 ng/mL [facility] Comment: See Note A See Note A BENZODIAZEPINES PM (U) NEGATIVE <100 ng/mL [facility] Comment: See Note A See Note A COCAINE METABOLITE PM (U) NEGATIVE <150 ng/mL [facility] Comment: See Note A See Note A MARIJUANA METABOLITE PM (U) POSITIVE(A) <20 ng/mL [facility] Comment: See Note A See Note A METHADONE PM (U) NEGATIVE <100 ng/mL [facility] Comment: See Note A See Note A OPIATES PM (U) POSITIVE(A) <100 ng/mL [facility] Comment: See Note A See Note A OXYCODONE PM (U) NEGATIVE <100 ng/mL [facility] Comment: See Note A See Note A CREATININE RANDOM (U) 37.0 > or = 20.0 mg/dL [facility] pH PM (U) 5.6 4.5 - 9.0 [facility] OXIDANT NEGATIVE <200 mcg/mL [facility] NOTE [facility] Comment: This drug testing is for medical treatment only. Analysis was performed as non-forensic testing and these results should be used only by healthcare providers to render diagnosis or treatment, or to monitor progress of medical conditions. Note A: The results are presumptive; based only on screening methods, and they have not been confirmed by a definitive method. LDT Notes: Confirmation tests were developed and their analytical performance characteristics have been determined by [facility]. It has not been cleared or approved by the FDA. This assay has been validated pursuant to the CLIA regulations and is used for clinical purposes. Healthcare Providers needing Interpretation assistance, please contact us at [phone] ( ) M-F, 8am to 10pm EST URINE SPECIMEN / Unknown 02/12/2025 1:43 PM CDT 02/13/2025 4:00 AM CDT Narrative Resulting Agency Comment Performing Organization Information: Site ID: [id number] [facility]: [facility] Address: [address] [place] [address] Director: Luís Oviedo Site ID: [id number] Name: [facility] Address: [address] [place] [address] Director: Rivas Padilla MD Nidhi Terrell DISTRIBUTION SYSTEMS SERVICEPERSON- URINE ORDERABLES Fin al Result Performing Organization Address City/[facility] Co de Phone Number [facility] [employer] [place] [address] [place] [address] [employer] [facility] [id number] [place] [address], [place] * ULTRASOUND GENERIC (SCAN ORDER) (02/11/2025) Anatomical Region Laterality Modality Other 02/11/2025 us [facility] Scanned SCANNING Final Resu lt * HEPATITIS C ANTIBODY (01/13/2022 4:18 PM CDT) HEPATITIS C AB NON-REACTI VE NON-REACTI VE 01/14/2022 4:17 PM CDT [facility] 01/13/2022 4:18 PM CDT Kya Ayon PRODUCTION MANUFACTURING WORKER LABORATORY Final Resul t [facility] [address] [place] [address], [place] [phone] from Last 3 Months or Most Recently Relevant to Health Maintenance Additional Health Concerns Active Problems Noted Date Diagnosed Date Autogenerated Problem 04/14/2025 Insurance [employer] Advance Directives Documents on File Type Date Recorded Patient Vendette Expl anation Legal Documents 07/15/2022 1:45 PM [employer] Care Teams Shaker Washer Relationship Specialty Start Date End Date Nidhi Terrell, DISTRIBUTION SYSTEMS SERVICEPERSON-URIEL [address] [place] [address] PCP - General Nurse Practitioner Family 01/08/24
--- OUTSIDE RECORDS SUMMARY | 2025-04-22 12:59 | XMS_ITS | Encounter Summary ---
Author Organization [facility] Address [address] [place] [address] Care Team Providers Care Automobile Upholstery Trim Installer Name Role Phone Eve Gleason COMMUTATOR V RING ASSEMBLER-C Primary Care Provider Kya Ayon COMMUTATOR V RING ASSEMBLER Primary Care Provider Nidhi Terrell TOOLROOM CHECKER-BC Primary Care Provid er Merlin Rajan DO Primary Care Provider Nidhi Terrell TOOLROOM CHECKER-BC Primary Care Provid er Reason for Referral * Surgical (Routine) - Closed Specialty Diagnoses / Procedures Referred By Beth swanson Referred To Contact Procedures Case request operating room: INJECTION TRIGGER POINT Cervical paraspinous, trapezius, deltoid Laura Bennett NP 3 [facility] [address] [facility] [place] [address] Phone: tel: [phone] fax: Referral ID Status Reason Start Date Expiration Date Visits Re quested Visits Authorized [id number] Closed 01/29/2021 02/28/2022 1 1 Encounter Details Date Type Department Care Team (Late st Contact Info) Description 01/29/2021 Prep for Procedure [facility] [place] [address] [phone] Laura Bennett, RYAN [address] [facility] [address] [place] [phone] [phone] (Work) Social History Tobacco Use Types Packs/Day [...] Sex Assigned at Male 11/12/2024 12:50 PM METALLURGICAL ENGINEERING TECHNICIAN Legal Sex Male 7:14 PM CDT Gender [...] Description 04/29/2025 10:44 AM CDT Hospital Encounter [facility] [address] [place] [address] [place] [address] Marlon Qureshi MD [address] [place] [address] [place] [address] 04/29/2025 10:44 AM CDT - 04/29/2025 11:50 AM CDT Surgery [facility] [address] [place] [address] [place] [address] Marlon Qureshi MD [address] [facility] 175 [place], [place] [address] COLONOSCOPY WITH POSSIBLE BIOPSY WITH POSSIBLE POLYPECTOMY 05/12/2025 1:00 PM CDT Office Visit [facility] [address] [place] [address] [facility]idhi Terrell [facility] [address] [place], [place] [address] Scheduled Orders Name Type Priority Associated Diagnoses Orde r Schedule Case request operating room: INJECTION TRIGGER POINT Cervical paraspinous, trapezius, deltoid Case Request Routine Once for 1 Oc currences starting 01/29/2021 until 01/29/2021 Scheduled Procedures Name Priority Associated Diagnoses Date/Ti me COLONOSCOPY DIAGNOSTIC WITH/WITHOUT SPECIMEN BRUSH/WASH Internal hemorrhoids Rectal bleeding Change in bowel habits 04/29/2025 10:44 AM CDT HEMORRHOIDECTOMY INTERNAL W/LIGATION Internal hemorrhoids Rectal bleeding Change in bowel habits 04/29/2025 10:44 AM CDT documented as of this encounter Visit Diagnoses Not on filedocumented in this encounter Care Teams Automobile Upholstery Trim Installer Relationship Specialty Start Date End Date Eve Gleason NP-C PCP - General Nurse Practitioner Family 04/20/2012/05 Kya Ayon NP [address] [place] [address] PCP - General NURSE PRACTITIONER 12/06/21 11/29/22 Nidhi Terrell [facility] [address] [place] [phone] PCP - General Nurse Practitioner Family 11/30/2212/04 Merlin Rajan DO [address] [place] [address] PCP - General FAMILY PRACTICE 12/05/22 01/07/24 Nidhi Terrell FNP- [address] [facility] [place] [address] PCP - General Nurse Practitioner Family 01/08/24 documented as of this encounter
--- OUTSIDE RECORDS SUMMARY | 2025-04-22 12:59 | XMS_ITS | Encounter Summary ---
Author Organization [facility] Address [address] [place] [address] Phone Care Team Providers Care Landing Gear Mechanic Name Role Phone Elmer Wetzel MD Primary Care Provider [phone] Sonya Bowman MD Unavailable [phone] Encounter Details Date Type Department Care Team (Late Contact Info) Description 02/09/2022 Telephone [facility] [address] [facility] [address] [place] [address] Trell Raza, DO [address] [place] [address] Social History Tobacco Use Types [...] on file Legal 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 New appt is on 03/16 documented in this encounter Plan of Treatment Upcoming Encounters Date Type Department Care Team (Late Contact Info) Description 04/25/2025 10:45 AM CDT Office [facility] [address] [facility] [address] [place] [address] Gianna Maguire M, HELP DESK SPECIALIST, MBA INTERN [address] [place] [phone] documented as of this encounter Visit Diagnoses Not on filedocumented in this encounter Additional Health Concerns Assessment Noted Time PHQ-9 Depression Total Score: 0 12/10/19 21 10:11 AM RETAIL SALES ASSISTANT documented as of this encounter Care Teams Landing Gear Mechanic Relationship Specialty Start Date End Date Elmer Wetzel MD [address] [facility] [address] [place] [address] PCP - General Family Medicine 09/15/15 Sonya Bowman MD [address] [facility] [address] [place] [address] Consulting Physician 10/12/15 documented as of this encounter
--- OUTSIDE RECORDS SUMMARY | 2025-04-22 12:59 | XMS_ITS | Clinical Summary ---
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 Gender Identity Not on file Sexual [...] 9:21 AM CDT Height 177.8 cm (5' 10) 03/15/2024 9:21 AM CDT Body Mass Index 26.11 03/15/2024 9:21 AM CDT Plan of Treatment Upcoming Encounters Date Type Department Care Team (Late st Contact Info) Description 04/25/2025 10:45 AM CDT [facility] [address] [place] [place] [address] Gianna Maguire, WARP PICKER, ROAD CLEANER [address] [place] [phone] Health Maintenance Due Date Last Done Comments TdaP Immunization 1989 SARS-COV-2 Immunization (#1) 1994 Hepatitis B Immunization (1 of 3 - 19+ 3-dose series) 01/24/2008 Pneumococcal Immunization Co mbined (1 of 2 - PCV) 01/24/2008 Influenza Immunization (#1) 2025 Respiratory Syncytial Virus (RSV) Immunization (Adult) (1 - 1-dose 75+ series) 01/24/2064 Hepatitis C Virus (HCV) Screening Completed 022 Human Papillomavirus (HPV) Immunization Aged Out No longer eligible b ased on patient's age to complete this topic Meningococcal Immunization (ACWY) Aged Out No longer eligible based on patient's age to complete this topic Rotavirus Immunization Aged Out No lo nger eligible based on patient's age to complete this topic Insurance MEDICAID [place] Care Teams Quick Print Operator Relationship Specialty Start Date End Date Elmer Wetzel MD [address] [place] [address] PCP - General Family Medicine 09/15/15 Sonya Bowman MD [address] [place] [address] Consulting Physician 10/12/15
--- NOTE | 2025-04-22 13:53 | CY_PTH ---
PATIENT: Raghav Knowles PD LOC: [facility] U#:[id number] AGE/SX: 35/M ROOM: RE04/22/[address]: Zaki Barkley MD : [id number] BED: DIS: 04/22/2025 SPEC #: [id number] RECD: 04/22/25 13:57 STATUS: IMAN REQ #: [id number] LUIZ: 04/22/25 13:[address]: Zaki Barkley DEPT: [facility] Cytology RECD BY: Melody Mora MLT, ([facility] [place]) ENTERED: 04/22/25 13:58 SP TYPE: Cytology OTHR DR: Nidhi Terrell, DAIRY TECHNOLOGIST Tissues: A - FNA Thyroid Procedures: Hematoxylin and Eosin Stain Cell Block Fine Needle Aspiration Evaluation Fine Needle Aspiration Pathologist
== END 2025-04-22 12:54 | disposition home or self-care (01) ==
PROVIDERS: PCP Nurse Practitioner Family; Visit Provider Internal Medicine
DX: E03.9 Hypothyroidism, unspecified (principal); E04.2 Nontoxic multinodular goiter
CPT/HCPCS: 10005; 88172; 88173; 88305